=== PATIENT | male | born 1975 | race Caucasian/White ===

== ENCOUNTER 2021-01-12 09:10 | Emergency (ER) | payer OTHER ==
[~2021-01-12] VITALS: Ht 180.3 cm; Wt 86.2 kg
[~2021-01-12 09:10] MED LIST: CIPROFLOXACIN500 M1 PO; DOXYCYCLINE 10100 MG PO; ERYTHROMYCIN E3.5 G1 OPHTHALMIC; HYDROCODONE-APA1 TA1 PO; IBUPROFEN 600600 M1 PO; NORCO 5-325 TA1 EACH PO
[2021-01-12 09:19] VITALS: BP 132/84
[2021-01-12] MEDS ORDERED: DIPHENHIST50 MG PO (09:46)
[2021-01-12] MEDS ORDERED: PREDNISONE 10 M10 M1 PO (09:46)
== END 2021-01-12 09:53 | disposition home or self-care (01) ==
LOC: M.ERS 09:10
DX: L23.7 Allergic contact dermatitis due to plants, except food (principal); F17.210 Nicotine dependence, cigarettes, uncomplicated

== ENCOUNTER 2021-01-26 07:08 | Emergency (ER) | payer OTHER ==
[~2021-01-26] VITALS: Ht 177.8 cm; Wt 81.7 kg
[~2021-01-26 07:08] MED LIST changes: +DIPHENHIST50 MG PO; +PREDNISONE 10 M10 M1 PO
[2021-01-26 09:18] VITALS: BP 102/64
== END 2021-01-26 09:23 | disposition home or self-care (01) ==
LOC: M.ERS 07:08
DX: R51.9 Headache, unspecified (principal); R11.2 Nausea with vomiting, unspecified; F17.210 Nicotine dependence, cigarettes, uncomplicated

== ENCOUNTER 2021-02-23 19:34 | Emergency (ER) | payer OTHER ==
[~2021-02-23] VITALS: Ht 180.3 cm; Wt 85.7 kg
[2021-02-23] MEDS ORDERED: HYDROCORTISONE3011 TOP (22:01)
[2021-02-23] MEDS ORDERED: HYDROXYZINE HCL25 M2 PO (22:01)
[2021-02-23] MEDS ORDERED: MEDROLDOSEPACK PO (22:01)
[2021-02-23] MEDS ORDERED: BACTRIM DS TAB1 EACH PO (22:03)
[2021-02-23 22:14] VITALS: BP 132/88
== END 2021-02-23 22:14 | disposition home or self-care (01) ==
LOC: M.ERS 19:34
DX: L25.9 Unspecified contact dermatitis, unspecified cause (principal); F17.210 Nicotine dependence, cigarettes, uncomplicated